=== PATIENT | female | born 1935 | race Caucasian/White ===

== ENCOUNTER 2021-01-19 08:52 | Outpatient (CLI) | payer OTHER | END 2021-01-19 08:56 | disposition home or self-care (01) | LOC: LAB 08:52 | PROVIDERS: ATTEND Radiology Diagnostic Radiology | DX: C64.1 Malignant neoplasm of right kidney, except renal pelvis (principal) ==

== ENCOUNTER → 2021-01-22 | Outpatient (CLI) | payer OTHER | END | disposition home or self-care (01) | LOC: MRI 08:15 | PROVIDERS: ATTEND Urology | DX: C64.1 Malignant neoplasm of right kidney, except renal pelvis (principal) | CPT/HCPCS: 74183; A9575; 74182 ==